=== PATIENT | male | born 1975 | race Caucasian/White ===

== ENCOUNTER → 2019-04-08 | Outpatient (CLI) | payer OTHER ==
[~2019-04-08] MED LIST: FLUZONE 2045 MCG/011; HYDROCODON-ACE1 EAC7; PNEUMOVAX25 MCG/0.5
--- NOTE | 2019-04-18 12:50 | SLEEP ---
[address] [address] SLEEP STUDY REPORT Name: LENARD DOMINGO Room: [facility]#: [id number] Admission: 04/08/19 Attend Phys: Kathy Hightower Discharge: Date of : 73 Report #: [id number] THIS REPORT FOR: //name// CC: Gale Christianson DO This study has been reviewed in its entirety by a board certified sleep specialist DATE OF SERVICE: 04/09/2019 REFERRING PHYSICIAN: Dr. Gale Christianson. The patient is a 43-year-old who weighs 244 pounds with a BMI of 34. The patient's [place] score was 11. The patient underwent home sleep study performed at [facility]. Total recording time was 378 minutes. During the night study, the patient had 25 obstructive apneas, no mixed or central apneas, and 14 hypopneas. The patient's apnea-hypopnea index was 6.2 per hour with a supine index of 6.8 per hour. Nocturnal oximetry study revealed an average oxygen saturation of 93% with a lowest of 86%. 1.7 minutes were spent in oxygen saturation less than 90%. Mean heart rate was 57 beats per minute. IMPRESSION: 1. Mild sleep apnea-hypopnea syndrome at an apnea-hypopnea index of 6.2 per hour. 2. No clinically significant nocturnal hypoxia. RECOMMENDATIONS: 1. The patient has mild sleep apnea. I would recommend weight loss as an initial form of treatment. 2. If the patient remains symptomatic despite weight loss, then treatment options at that time would include CPAP versus oral appliance. 3. Avoid [employer] depressants. 4. Cautioned regarding driving until the patient's symptoms have resolved with the above recommendation. <ELECTRONICALLY SIGNED> By: Konrad Little MD 04/18/19 1250 [id number] 1959Adaljit Little MD /nt
== END ==
LOC: M.SLEEPLAB 13:00
DX: G47.30 Sleep apnea, unspecified (principal); G47.33 Obstructive sleep apnea (adult) (pediatric); R09.02 Hypoxemia

== ENCOUNTER → 2019-06-15 | Outpatient (CLI) | payer OTHER ==
--- NOTE | 2019-06-16 19:56 | SLEEP ---
[address] [address] SLEEP STUDY REPORT Name: LENARD DOMINGO Room: [facility]#: [id number] Admission: 06/15/19 Attend Phys: Kathy Hightower Discharge: Date of : 73 Report #: [id number] THIS REPORT FOR: //name// CC: Gale Christianson DO This study has been reviewed in its entirety by a board certified sleep specialist DATE OF SERVICE: 06/15/2019 SLEEP STUDY ATTENDING PHYSICIAN: Dr. Gale Christianson. The patient is a 43-year-old who weighs 228 pounds with a BMI of 31.8. The patient's [place] score was 11. The patient had a diagnosis of sleep apnea previously and was referred for in-lab titration study. During the night study, the patient spent 461 minutes in bed and slept for 429 minutes with a sleep efficiency of 93%. Sleep latency was 4.5 minutes with a REM latency of 83.5 minutes. Sleep architecture showed normal stage 1 sleep, slightly increased stage 2 sleep, normal slow wave and increased REM sleep. EKG monitoring revealed normal sinus rhythm. Average heart rate 51 beats per minute. No sustained arrhythmias observed. No clinically significant PLM seen. The patient was started on CPAP at 5 cm water and titrated up to 10 cm of water. At the final pressure, the patient slept for 249 minutes including 80 minutes of supine REM sleep. The patient's AHI was reduced to 0 per hour and oxygen saturation remained above 93%. IMPRESSION: 1. Sleep apnea diagnosed by previous sleep study. 2. No clinically significant periodic limb movements. RECOMMENDATIONS: 1. CPAP at 10 cm water completely eliminated the patient's sleep apnea and should be used on a nightly basis. 2. Follow up in 4-6 weeks to assess compliance with CPAP and to document clinical improvement. 3. Weight loss is strongly advised. 4. Avoid [place] [place] [address] SLEEP STUDY REPORT Name: LENARD DOMINGO Room: [facility]#: [id number] Admission: 06/15/19 Attend Phys: Kathy Hightower Discharge: Date of : 73 Report #: [id number] 5. Cautioned regarding driving until symptoms of sleep apnea resolve with the use of CPAP. <ELECTRONICALLY SIGNED> By: Konrad Little MD 06/16/19 [id number] Little MD /nt
== END ==
LOC: M.SLEEPLAB 19:51
DX: G47.30 Sleep apnea, unspecified (principal)